=== PATIENT | male | born 1950 | race Caucasian/White ===

== ENCOUNTER → 2016-04-01 | Outpatient (CLI) | payer BC, OTHER ==
[~2016-04-01] MED LIST: ALL300 PO; CLON2TAB3 PO; FLM4 PO; HYDR12.55 PO; LEVO137T3 PO; LOSA50TA6 PO; MESA800T6 PO; SILD100T PO; TRAM-10 PO
== END | disposition home or self-care (01) ==
LOC: C.RDSM 08:17
PROVIDERS: ATTEND Physical Medicine & Rehabilitation Sports Medicine
DX: Z47.1 Aftercare following joint replacement surgery (principal); Z96.653 Presence of artificial knee joint, bilateral

== ENCOUNTER 2024-10-18 10:52 | Observation (INO) ==
[2024-10-18] MEDS: SODIUM CHLORIDE 0.9% 1,000 ML IV ONE (11:32)
[2024-10-18] MEDS: METOPROLOL TARTRATE 1 MG/ML VIAL IV STA ×2 (11:32→12:11)
--- NOTE | 2024-10-18 11:33 | Emergency Department Note ---
Impression & Plan New onset atrial fibrillation, Chest pain, Shortness of breath, Elevated troponin ED Provider Note NAME: TRISTIAN MALDONADO AGE: 74 SEX: M : 1950 ARRIVES VIA: Walk-In INFORMANT: Patient ED PROVIDER(S): rBian Osorio DO CHIEF COMPLAINT: Shortness of breath HPI: Patient is a patient is a 74-year-old male who presents to the ER for shortness of breath. He saw his PCP and was referred in as he was found to be tachycardic. He denies any headache or change in vision. No chest pain. No belly pain. No nausea, vomiting or diarrhea. No dysuria, urgency or frequency. No other exacerbating or remitting factors. He feels very weak and rundown. ADDITIONAL HISTORY OBTAINED: Per HPI Chronic Medical/Social Conditions Affecting Care: Per HPI PAST MEDICAL HISTORY:See Below PAST SURGICAL HISTORY:See Below FAMILY HISTORY:See Below SOCIAL HISTORY:See Below HOME MEDICATIONS:See Below ALLERGIES:See Below VITALS:See Below PHYSICAL EXAMINATION: GENERAL: Sitting up in bed, alert, well appearing, well nourished, no distress, non-toxic EYE EXAM: normal conjunctiva. OROPHARYNX: no exudate, no erythema, lips, buccal mucosa, and tongue normal and mucous membranes are moist NECK: supple, no nuchal rigidity, no adenopathy, non-tender LUNGS: Tachycardic. Normal chest wall mechanics HEART: no murmurs, S1 normal and S2 normal ABDOMEN: abdomen soft, non-tender, normo-active bowel sounds, no masses, no rebound or guarding. UPPER EXTREMITIES: upper extremities are grossly normal. LOWER EXTREMITIES: No pitting edema. NEURO EXAM: Normal sensorium, cranial nerves II-XII grossly intact, normal speech, no gross weakness of arms, no gross weakness of legs. MEDICAL DECISION MAKING: Patient is a 74-year-old male who presents ER for the above-stated complaint. IV was established blood work was obtained. He was seen in triage due to lack of rooms. He was found to be in was felt to be in atrial flutter. Labs showed no significant leukocytosis or anemia. INR unremarkable. BMP with LFTs bilirubin was unremarkable. Troponin was elevated in the 250s. Patient was given IV metoprolol x 2 doses and heart rate trended down to 100. He did appear to be consistent with A-fib. Patient was updated bedside. He was given aspirin. He was discussed with the hospitalist for further evaluation management treatment. Consults/Care Managements Discussions: Per MDM Triage Nursing notes reviewed. Limited review of prior medical records performed Vital Signs: reviewed and remarkable for HTN and tachy Differential diagnosis: Cardiac ischemia, aortic dissection, pulmonary embolism, pneumothorax, pneumonia, pericarditis, myocarditis, esophageal rupture, GERD, cholecystitis, pancreatitis, musculoskeletal, as well as other pathologies. ER treatment provided: See below Diagnostics interpreted by me include EKG and cardiac monitoring as listed below: -Cardiac Monitoring: An order was placed for continuous cardiac monitoring. The monitor shows a rate of 150 with sinus rhythm. -ECG: Atrial flutter rate of [address] depressions in high lateral leads QTc 507 EKG #2 A-fib rate of 106 Left axis Right bundle branch block QTc 515 -Laboratory studies:Interpreted by me as stated above in MDM and shown below. Imaging studies: Xrays: As interpreted by me: Portable AP upright 1 view of the chest shows no focal M-Trate CTs show: None Procedures: None Critical Care: I have personally spent 35 minutes of critical care time in the direct management of this patient. This includes bedside care, interpretation of diagnostic studies, and testing, discussion with consultants, patient, and family members, and other required patient management activities. This 35 minutes is in excess of all separately billable procedures. 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 Sleep apnea Ulcerative colitis History of thyroid cancer DJD (degenerative joint disease) of knee (Acute 04/27/14) Medical History History of kidney stones Surgical History H/O lithotripsy History of tonsillectomy and adenoidectomy History of thyroidectomy Family History Father Lung cancer Mother Lung cancer Social History Smoking Status: Never smoker Hx Alcohol Use: No Hx Substance Use: No Preferred Language: Liberian marital status: Current Living Situation: Spouse current occupational status: retired Feels Safe at Home: Yes Allergies Allergies Allergy/AdvReac Type Severity Reaction Status Date / Time pneumococcal vaccine Allergy Mild RASH Verified 10/18/24 12:43 nickel Allergy Unknown Unknown Unverified 10/18/24 12:43 Home Meds Home Medications Medication Instructions Recorded Confirmed allopurinol 300 mg tablet 300 mg PO QAM 03/02/19 10/18/24 ergocalciferol (vitamin D2) 1,250 50,000 units PO DIRECTED 03/02/19 10/18/24 mcg (50,000 unit) capsule hydrochlorothiazide 25 mg tablet 25 mg PO QAM 03/02/19 10/18/24 losartan 50 mg tablet 50 mg PO QPM 03/02/19 10/18/24 mesalamine 1.2 gram tablet,delayed 2.4 gm PO QAM 03/02/19 10/18/24 release multivitamin 1 tab PO QAM 03/02/19 10/18/24 tamsulosin 0.4 mg capsule 0.8 mg PO QAM 03/02/19 10/18/24 tramadol 50 mg tablet 50 - 100 mg PO BID PRN Pain 03/02/19 10/18/24 clonazepam 2 mg tablet 2 mg PO HS 04/13/19 10/18/24 levothyroxine 137 mcg capsule 274 mcg PO QAM 04/13/19 10/18/24 Lactobacillus acidophilus 250 20,000 mmu cells PO QAM 10/18/24 10/18/24 million cell capsule (Probiotic Acidophilus) acetaminophen 500 mg tablet 500 mg PO Q6H PRN Pain 10/18/24 10/18/24 cyclosporine 0.05 % eye drops in a 1 drp ophthalmic (eye) DAILY 10/18/24 10/18/24 dropperette dutasteride 0.5 mg capsule 0.5 mg PO QAM 10/18/24 10/18/24 krill oil 500 mg capsule 500 mg PO DAILY 10/18/24 10/18/24 magnesium oxide 400 mg PO DAILY 10/18/24 10/18/24 pregabalin 100 mg capsule 100 mg PO TID 10/18/24 10/18/24 testosterone 3 pump topical QAM 10/18/24 10/18/24 triamcinolone acetonide 0.1 % 1 applic topical QAM 10/18/24 10/18/24 lotion turmeric 400 mg capsule 400 mg PO DAILY 10/18/24 10/18/24 vitamin K2 40 mcg tablet 40 mcg PO DAILY 10/18/24 10/18/24 Results & Data (ED) Vital Signs Vital Signs - 24 hr 10/18/24 10:53 10/18/24 10:53 10/18/24 11:24 Temperature 36.6 C Temperature Source Temporal Artery Scan Pulse Rate 147 H Pulse Rate [Apical] 125 H Pulse Rhythm [Apical] Regular Pulse Strength [Apical] Normal Respiratory Rate 18 18 19 Respiratory Effort / Characteristics Non-Labored Spontaneous Respiratory Depth Normal Respiratory Pattern Regular Blood Pressure 139/80 Blood Pressure [Right Arm] 143/120 H Blood Pressure Mean 99 Blood Pressure Mean [Right Arm] 127 Pulse Oximetry 95 96 Oxygen Delivery Method Room Air Room Air Sepsis Recent Fever Within 48 Hours No Sepsis New/Unexplained Change in Mental Status N/A Sepsis Action Taken by Nursing No Action Required 10/18/24 11:32 10/18/24 12:04 10/18/24 12:11 Temperature Temperature Source Pulse Rate 145 H 118 H 116 H Pulse Rate [Apical] Pulse Rhythm [Apical] Pulse Strength [Apical] Respiratory Rate Respiratory Effort / Characteristics Respiratory Depth Respiratory Pattern Blood Pressure 131/103 H 155/108 H Blood Pressure [Right Arm] Blood Pressure Mean Blood Pressure Mean [Right Arm] Pulse Oximetry Oxygen Delivery Method Sepsis Recent Fever Within 48 Hours Sepsis New/Unexplained Change in Mental Status Sepsis Action Taken by Nursing Laboratory Data 10/18/24 11:12 10/18/24 11:12 Lab Results 10/18/24 Range/Units 11:12 WBC 5.99 (4.8-10.8) K/ul RBC 4.91 (4.70-6.10) M/uL Hgb 15.9 (14.0-18.0) g/dl Hct 44.8 (42.0-52.0) % MCV 91.2 (80.0-100.0) fL MCH 32.4 (25.0-34.0) pg MCHC 35.5 (32.0-36.0) g/dL RDW Std Deviation 44.7 (36.4-46.3) fL RDW Coeff of Kate 13.3 (11.5-14.5) % Plt Count 157 (130-400) K/uL MPV 10.0 (9.4-12.4) fL Immature Gran % (Auto) 0.3 % Neut % (Auto) 64.7 % Lymph % (Auto) 23.2 % Casey % (Auto) 9.3 % Eos % (Auto) 1.5 % Baso % (Auto) 1.0 % Neut # (Auto) 3.87 (1.40-6.50) K/uL Lymph # (Auto) 1.39 (1.20-3.40) K/uL Casey # (Auto) 0.56 (0.11-0.59) K/uL Eos # (Auto) 0.09 (0.00-0.50) K/uL Baso # (Auto) 0.06 (0.00-0.20) K/uL Immature Gran # (Auto) 0.02 (0.01-0.20) K/uL PT 10.6 (9.0-12.0) Seconds INR 1.0 (0.9-1.1) APTT 27 (21-31) Seconds PTT Ratio 1.0 D-Dimer 4230 H* (0-500) ug/L FEU Sodium 135 L (136-145) mmol/L Potassium 3.8 (3.5-5.1) mmol/L Chloride 102 (98-107) mmol/L Carbon Dioxide 26 (21-32) mmol/L Anion Gap 7 (3-11) BUN 26 H (6-23) mg/dl Creatinine 1.02 (0.6-1.4) mg/dl Est Cr Clr Drug Dosing 86.6 ml/min eGFR 77.12 BUN/Creatinine Ratio 25.5 H (10-20) Glucose 111 H (70-99(Fasting)) mg/dl Calcium 8.6 (8.6-10.3) mg/dl Total Bilirubin 0.5 (0.2-1.0) mg/dl AST 32 (13-39) U/L ALT 21 (7-52) U/L Alkaline Phosphatase 66 (34-104) U/L Troponin I High Sens 246.6 H* (0-20) pg/ml Total Protein 9.4 H (6.0-8.3) gm/dl Albumin 3.8 (3.4-5.0) gm/dl Globulin 5.6 H (2.5-4.0) gm/dl Albumin/Globulin Ratio 0.7 L (0.9-2) Administered Medications Heparin Sodium/Dextrose (Heparin 88808 Unit/500 Ml D5w) 25,000 units in 500 mls @ 35 mls/hr IV .[id number] [facility]; Protocol Stop: 11/17/24 13:44 Last Admin: 10/18/24 14:39 Dose: 1,750 units/hr, 35 mls/hr Documented By: Co-signed By: HERMAN Diltiazem HCl 125 mg/ Dextrose 125 mls @ 5 mls/hr IV .Q24H [facility]; Protocol Stop: 11/17/24 14:14 Last Admin: 10/18/24 14:40 Dose: 5 mg/hr, 5 mls/hr Documented By: Co-signed By: HERMAN Discontinued Medications Aspirin (Aspirin Chew 324 Mg) 324 mg PO NOW STA Stop: 10/18/24 12:05 Last Admin: 10/18/24 12:10 Dose: 324 mg Documented By: HERMAN Diltiazem HCl (Diltiazem Hcl 5 Mg/Ml 5 Ml Vial) 5 mg IV NOW STA Stop: 10/18/24 14:16 Last Admin: 10/18/24 14:40 Dose: 5 mg Documented By: Co-signed By: HERMAN Heparin Sodium/Dextrose (Heparin Iv Adult Wt-Based Standard W/ Initial Bolus Protocol) 1 each IV NOW STA; Protocol Stop: 10/18/24 13:23 Last Admin: 10/18/24 13:31 Dose: Not Given Documented By: OTONIEL Sodium Chloride (Nss) 1,000 mls @ 999 mls/hr IV .Q1H1M ONE Stop: 10/18/24 12:27 Last Infusion: 10/18/24 12:34 Dose: Infused Documented By: Admin: 10/18/24 11:32 Dose: 999 mls/hr Documented By: OTONIEL Ioversol (Optiray 320 125ml) 120 ml IV ONCE ONE Stop: 10/18/24 14:48 Last Admin: 10/18/24 14:47 Dose: 120 ml Documented By: ARTI Metoprolol Tartrate (Metoprolol Tartrate 1 Mg/Ml Vial) 5 mg IV NOW STA Stop: 10/18/24 11:28 Last Admin: 10/18/24 11:32 Dose: 5 mg Documented By: OTONIEL Metoprolol Tartrate (Metoprolol Tartrate 1 Mg/Ml Vial) 5 mg IV NOW STA Stop: 10/18/24 12:05 Last Admin: 10/18/24 12:11 Dose: 5 mg Documented By: NDW Imaging Data Radiologist's Impression: Chest X-Ray 10/18/24 11:02 XR chest 1V not portable CLINICAL HISTORY: Chest pain, nonspecific COMPARISON STUDY: None FINDINGS: Heart size and pulmonary vasculature are normal. There is a 1 cm irregular density overlying the central chest. No consolidation or pleural effusion. No pneumothorax. IMPRESSION: 1. Possible foreign body overlying the central chest. 2. No other acute findings seen. ACT 112: Negative or not required by law. Electronically signed by: Eligio Espinal M.D. 10/18/2024 11:58 AM Discharge Plan Visit Data Chief Complaint: Referred by Doctor Stated Complaint: RAPID HEART RATE - REFFERED BY ED Provider: Brian Osorio Discharge Problem: New onset atrial fibrillation, Chest pain, Shortness of breath, Elevated troponin Patient Disposition: Admitted As Inpatient Condition: Fair Discharge Instructions Interventions: ED Discharge Assessment Last Done: 10/18/24 14:25 Discharge Problem: Chest pain Qualifiers: Chest pain type: unspecified Qualified Code(s): R07.9 - Chest pain, unspecified
[2024-10-18 11:34] LABS: Hematocrit (blood only) 44.8 % (42.0-52.0); Hemoglobin 15.9 g/dl (14.0-18.0); Immature Granulocytes # (auto) 0.02 K/uL (0.01-0.20); Immature Granulocytes % (auto) 0.3 %; Mean Corpuscular Hemoglobin 32.4 pg (25.0-34.0); Mean Corpuscular Volume 91.2 fL (80.0-100.0); Platelet Count 157 K/uL (130-400); RDW Standard Deviation 44.7 fL (36.4-46.3); Red Blood Count 4.91 M/uL (4.70-6.10); White Blood Count 5.99 K/ul (4.8-10.8)
[2024-10-18 11:49] LABS: Alanine Aminotransferase 21.0 U/L (7-52); Albumin Globulin Ratio 0.7 (0.9-2); Alkaline Phosphatase 66.0 U/L (34-104); Anion Gap 7.0 (3-11); Bilirubin,Total 0.5 mg/dl (0.2-1.0); Blood Urea Nitrogen 26.0 mg/dl (6-23); Calcium 8.6 mg/dl (8.6-10.3); Carbon Dioxide 26.0 mmol/L (21-32); Chloride 102.0 mmol/L (98-107); Creatinine Clr Calc Pharmacy 86.6 ml/min; Globulin 5.6 gm/dl (2.5-4.0); Glucose 111.0 mg/dl (70-99(Fasting)); Potassium 3.8 mmol/L (3.5-5.1); Sodium 135.0 mmol/L (136-145); Total Protein 9.4 gm/dl (6.0-8.3)
[2024-10-18 11:56] LABS: INR 1.0 (0.9-1.1); Partial Thromboplastin Time 27 Seconds (21-31); Prothrombin Time 10.6 Seconds (9.0-12.0)
--- NOTE | 2024-10-18 12:00 | XRay Report ---
XR chest 1V not portable CLINICAL HISTORY: Chest pain, nonspecific COMPARISON STUDY: None FINDINGS: Heart size and pulmonary vasculature are normal. There is a 1 cm irregular density overlyin g the central chest. No consolidation or pleural effusion. No pneumothorax. IMPRESSION: 1. Possible foreign body overlying the central chest. 2. No other acute findings seen. ACT 112: Negative or not required by law. Electronically signed by: Eligio Espinal M.D. 10/18/2024 11:58 AM
[2024-10-18] MEDS: ASPIRIN CHEW 324 MG PO STA (12:10)
--- NOTE | 2024-10-18 12:16 | History & Physical Report ---
Date of Service October 18, 2024 Assessment & Plan (1) New onset atrial fibrillation: (2) History of thyroid cancer: (3) Ulcerative colitis: (4) HTN (hypertension): Plan: Mr. Fu is a 74-year-old male that presented to the ED as recommended by his PCP for shortness of breath and tachycardia that was identified in an outpatient appointment. His heart rate was in the 150s in the office and he was instructed to proceed to the ED. He reportedly has been feeling weak over the last few weeks. He has been doing more house chores like laundry (going up and down steps with a laundry basket, vaccuming, etc). He denies anything else unusual recently including upper respiratory illness or recent travel. He did have a mechanical fall 6 weeks ago and reports that he is seeing physical therapy for BPPV. Additional PMH includes: Ulcerative Colitis, HTN, LBBB, New onset atrial fibrillation: SOB: SOB started on Friday, intermittent with activity and at rest At PCP; HR was in 150's sent to ED In ED, metoprolol 5 mg IV x 2; response HR low 100's-115. Started Metoprolol 12.5 mg PO TID Was given ASA 324 mg in ED No leukocytosis, Troponin 246.6; repeat now; likely 2/2 ischemic demand, rather than ACS. [id number] score 2 Check A1C and lipid panel in AM Started on Heparin gtt without bolus given UC history. ECHO ordered; last ECHo 03/2024: EF 60-65%, G1DDX, mild MR. D-Dimer elevated at 4200; will add on chest CTA and Venous Doppler LE. 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 Most recently his last injection was on Friday. No issues with injections thus far. Takes Lyrica; continue History of Thyroid CA: s/p total thyroidectomy 2006 s/p radioactive iodine treatment Ulcerative Colitis: In remission Takes mesalamine; continue BPH: Takes tamsulosin;continue Disposition: PCP: Dr. Kennedy Code Status: Full VTE Prophylaxis: Heparin gtt I spent a total of 78 minutes coordinating, documenting, and providing care for this patient excluding time spent inthe performance of separately billed services or time spent by another provider/QHP. History of Present Illness Chief Complaint: SOB/tachycardia Primary Care Provider: Xiang Kennedy MD Mr. Fu is a 74-year-old male that presented to the ED as recommended by his PCP for shortness of breath and tachycardia that was identified in an outpatient appointment. His heart rate was in the 150s in the office and he was instructed to proceed to the ED. He reportedly has been feeling weak over the last few weeks. He has been doing more house chores like laundry (going up and down steps with a laundry basket, vaccuming, etc). He denies anything else unusual recently including upper respiratory illness or recent travel. He did have a mechanical fall 6 weeks ago and reports that he is seeing physical therapy for BPPV. Additional PMH includes: Ulcerative Colitis, HTN, LBBB, demeylenating polyneuropathy, and BPH. In the ED he was found to be in A-fib which was a new onset for him. He follows with Dr. Stone with Neurology For demyelinating polyneuropathy which was diagnosed at the beginning of the year. He has been receiving IVIG for treatme nt for this after pathology indicated in his left foot at the myelin sheath with demyelinating. He has received 4 weekly cycles of monthly IVIG injections that take place daily over 1 week time. Most recently his last injection was on Friday. He has not had any issues with his injections this far. He received metoprolol 5 mg IV x 2, Start aspirin, and was started on IV fluids x 1 L. No leukocytosis, troponin level 246.6 likely secondary to ischemic demand due to new onset A-fib. otherwise his electrolytes are unremarkable. [id number] score 2. in the ED he received metoprolol 5 mg IV x 2 and was loaded with baby aspirin 324 mg. Patient will be admitted for further evaluation and management of his new onset A-fib. Echocardiogram ordered, repeat Troponin, will start IV Heparin infusion without bolus given UC history, and start Metoprolol 12.5 mg po TID. Will keep NPO until Cards eval and admit to PCU.D-Dimer elevated at 4200; will add on chest CTA and Venous Doppler LE. Please see H&P for further details. Allergies Allergy/AdvReac Type Severity Reaction Status Date / Time pneumococcal vaccine Allergy Mild RASH Verified 10/18/24 12:43 nickel Allergy Unknown Unknown Unverified 10/18/24 12:43 Home Medications Medication Instructions Recorded Confirmed Type allopurinol 300 mg tablet 300 mg PO QAM 03/02/19 10/18/24 History ergocalciferol (vitamin D2) 1,250 50,000 units PO DIRECTED 03/02/19 10/18/24 History mcg (50,000 unit) capsule hydrochlorothiazide 25 mg tablet 25 mg PO QAM 03/02/19 10/18/24 History losartan 50 mg tablet 50 mg PO QPM 03/02/19 10/18/24 History mesalamine 1.2 gram tablet,delayed 2.4 gm PO QAM 03/02/19 10/18/24 History release multivitamin 1 tab PO QAM 03/02/19 10/18/24 History tamsulosin 0.4 mg capsule 0.8 mg PO QAM 03/02/19 10/18/24 History tramadol 50 mg tablet 50 - 100 mg PO BID PRN Pain 03/02/19 10/18/24 History clonazepam 2 mg tablet 2 mg PO HS 04/13/19 10/18/24 History levothyroxine 137 mcg capsule 274 mcg PO QAM 04/13/19 10/18/24 History Lactobacillus acidophilus 250 20,000 mmu cells PO QAM 10/18/24 10/18/24 History million cell capsule (Probiotic Acidophilus) acetaminophen 500 mg tablet 500 mg PO Q6H PRN Pain 10/18/24 10/18/24 History cyclosporine 0.05 % eye drops in a 1 drp ophthalmic (eye) DAILY 10/18/24 10/18/24 History dropperette dutasteride 0.5 mg capsule 0.5 mg PO QAM 10/18/24 10/18/24 History krill oil 500 mg capsule 500 mg PO DAILY 10/18/24 10/18/24 History magnesium oxide 400 mg PO DAILY 10/18/24 10/18/24 History pregabalin 100 mg capsule 100 mg PO TID 10/18/24 10/18/24 History testosterone 3 pump topical QAM 10/18/24 10/18/24 History triamcinolone acetonide 0.1 % 1 applic topical QAM 10/18/24 10/18/24 History lotion turmeric 400 mg capsule 400 mg PO DAILY 10/18/24 10/18/24 History vitamin K2 40 mcg tablet 40 mcg PO DAILY 10/18/24 10/18/24 History 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 Sleep apnea Ulcerative colitis History of thyroid cancer DJD (degenerative joint disease) of knee (Acute 04/27/14) Medical History History of kidney stones Surgical History H/O lithotripsy History of tonsillectomy and adenoidectomy History of thyroidectomy Family History Father Lung cancer Mother Lung cancer Social History Smoking Status: Never smoker Hx Alcohol Use: No Hx Substance Use: No Preferred Language: Mongolian marital status: Current Living Situation: Spouse current occupational status: retired Feels Safe at Home: Yes Review of Systems Review of Systems: Neuro: (-) Falls, trauma, slurred speech HEENT: (-) NELSON, dizziness, dysphagia, visual or auditory changes CV: (-) CP, palpitations, swelling Resp: (-) SOB GI: (-) appetite changes, N/V/D, bowel changes : (-) urinary changes Skin: (-) rashes Psych: (-) anxiety, depression Physical Exam Physical Exam: Neuro: AAOx4, PERRLA, no aphagia, memory changes, CNII-XII grossly intact HEENT: head normocephalic, moist mucus membranes CV: Irregularly irregular, (-) M/G/R, (-) edema, cap refill < 3 seconds Resp: Lungs CTA in all ely. On RA GI: Large abdomen S/NT/ND, Ax4 bowel sounds, (-) CVA tenderness Musculoskeletal: 5/5 B/L UE strength, 5/5 B/L LE strength. uses a cane for ambulation. Skin: (-) rashes , (-) erythema. Psych: euthymic mood Results & Data Results & Data Vital Signs (Past 12 Hours) Vital Signs Temp Pulse Pulse Resp BP BP Pulse Ox 10/18/24 12:11 116 H 155/108 H 10/18/24 12:04 118 H 10/18/24 11:32 145 H 131/103 H 10/18/24 11:24 125 H 19 143/120 H 96 10/18/24 10:53 18 10/18/24 10:53 36.6 C 147 H 18 139/80 95 O2 Del Method 10/18/24 12:11 10/18/24 12:04 10/18/24 11:32 10/18/24 11:24 Room Air 10/18/24 10:53 10/18/24 10:53 Room Air Laboratory Results Short CBC 10/18/24 Range/Units 11:12 WBC 5.99 (4.8-10.8) K/ul Hgb 15.9 (14.0-18.0) g/dl Hct 44.8 (42.0-52.0) % Plt Count 157 (130-400) K/uL BMP 10/18/24 11:12 Sodium 135 L Potassium 3.8 Chloride 102 Carbon Dioxide 26 BUN 26 H Creatinine 1.02 Glucose 111 H Calcium 8.6 Liver Function 10/18/24 Range/Units 11:12 Total Bilirubin 0.5 (0.2-1.0) mg/dl AST 32 (13-39) U/L ALT 21 (7-52) U/L Alkaline Phosphatase 66 (34-104) U/L Albumin 3.8 (3.4-5.0) gm/dl Diagnostic Findings Chest X-Ray 10/18/24 11:02 XR chest 1V not portable CLINICAL HISTORY: Chest pain, nonspecific COMPARISON STUDY: None FINDINGS: Heart size and pulmonary vasculature are normal. There is a 1 cm irregular density overlying the central chest. No consolidation or pleural effusion. No pneumothorax. IMPRESSION: 1. Possible foreign body overlying the central chest. 2. No other acute findings seen. ACT 112: Negative or not required by law. Electronically signed by: Eligio Espinal M.D. 10/18/2024 11:58 AM Code Status & VTE Plan Code Status Full Code in the event of cardiac or respiratory arrest VTE Prophylaxis Plan VTE Prophylaxis will be ordered: Yes Supervising Physician Co-Signing Physician Notes Care coordinated with ITZ Galicia. Agree with above note. Patient seen and examined. Please refer to her notes for full details. Vital signs reviewed. Physical exam: General exam: Alert and oriented. Not in acute distress. CVS: S1 and S2 heard, irregular rate and rhythm, no murmurs. RS: Clear to auscultation, no wheezing or crackles. ABD: Soft, bowel sounds present, nontender, no distention. CORPORATION PILOT: Nonfocal. EXT: No edema, no erythema. Labs: Reviewed. Assessment and plan: 74 Y M went to PCP office today as he feeling SOB and not feeling well and found to be in rapid a fib and was sent to ER. Denies any chest pain. HAs neuropathy in lower extremities and has ongoing dizziness. No fevers. No cough. Hemodynamics ok. New onset afib Received iv Lopressor 5mg x 2 in Er Will continue with po Lopressor per cardio recommendations. To Monitor closely heart rates as having underlying bifascicular heart block iv heparin close monitor in tele Elevated troponin mostly demand ischemia currently asymptomatic initial trop 246 and repeat 305 echo ok will follow serial ce cardiology on board Elevated D dimer cta chest unremarkable HTN on hctz starting Lopressor holding losartan' will monitor. Demyelinating polyneuropathy on ivig injections every four weeks for 5day since last 4 months following with Neurology Other diagnosis and plan of care as per ITZ Galicia . Ruperto avalos MD.
--- NOTE | 2024-10-18 12:19 | Electrocardiogram Report ---
Test Reason : Blood Pressure : */* mmHG Vent. Rate : 149 BPM Atrial Rate : 149 BPM P-R Int : 104 ms QRS Dur : 142 ms QT Int : 322 ms P-R-T Axes : * -84 74 degrees QTcB Int : 507 ms Sinus tachycardia with short IA Right bundle branch block Left anterior fascicular block Bifascicular block Left ventricular hypertrophy with repolarization abnormality ( R in aVL ) Cannot rule out Septal infarct , age undetermined Abnormal ECG No previous ECGs available Confirmed by Toney Ayers ([id number]) on 10/18/2024 12:18:54 PM Referred By: Confirmed By: Toney Ayers
--- NOTE | 2024-10-18 12:21 | Electrocardiogram Report ---
Test Reason : Blood Pressure : */* mmHG Vent. Rate : 106 BPM Atrial Rate : 106 BPM P-R Int : 184 ms QRS Dur : 154 ms QT Int : 388 ms P-R-T Axes : * -75 43 degrees QTcB Int : 515 ms Sinus tachycardia with Premature atrial complexes in a pattern of bigeminy Right bundle branch block Left anterior fascicular block Bifascicular block Minimal voltage criteria for LVH, may be normal variant ( R in aVL ) Abnormal ECG When compared with ECG of 18-Oct-2024 11:06, (unconfirmed) Premature atrial complexes are now Present OH interval has increased T wave inversion less evident in Anterior leads Confirmed by Toney Ayers ([id number]) on 10/18/2024 12:21:17 PM Referred By: Confirmed By: Toney Ayers
[2024-10-18] MEDS ORDERED: ERGOCALCIFEROL 1250 MCG (50,000 UNITS) CAP PO SCH (13:30)
[2024-10-18] MEDS: Heparin IV Adult Wt-Based Standard w/ INITIAL Bolus Protocol IV STA (13:31)
[2024-10-18] MEDS ORDERED: HEPARIN SOD (PORCINE) 1000 UNIT/ML IV ONE (13:37)
[2024-10-18] MEDS ORDERED: STAT IV Infusion **Titration per Protocol STA (14:15)
--- NOTE | 2024-10-18 14:16 | Cardiology Consultation ---
Date of Consultation October 18, 2024 Assessment & Plan (1) New onset atrial fibrillation: * Start heparin for stroke prophylaxis * Cautiously start metoprolol tartrate 25 mg x 1 now and then 25 mg twice daily, with hold for heart rate less than 60 beats per, systolic blood pressure less than 90 mmHg, given underlying bifascicular block and risk of inducing bradycardia (2) Bifascicular bundle branch block: * As noted, start AV adia blockers with caution. Doses will likely be limited by the underlying bifascicular block with baseline heart rate in the 60s and when in sinus rhythm historically. (3) Aortic stenosis: * Mild aortic stenosis, echo March,. Repeat echocardiogram to be completed and will be reviewed. I spent a total of 60 minutes on the date of service in preparation, delivery, and documentation of the care provided to this patient, excluding any time spent in the performance of separately billed services. Katlin Florez DO History of Present Illness History of Present Illness Ismael Fu is a 74 year old male seen in cardiology consultation per the request of ITZ Nguyễn for the evaluation of shortness of breath, newly diagnosed atrial fibrillation with rapid ventricular response. Patient notes first onset of symptoms of shortness of breath 2 days ago on 10/16/2024, improved for a short interval of time, and then became worse yesterday. He ranged a visit with primary care and EKG confirmed the presence of atrial fibrillation with rapid ventricular response, heart rate up into the 140s. He was therefore directed to the emergency department. He received 2 doses of IV metoprolol and his heart rates improved to some degree. He remained in atrial fibrillation in the 120s during my assessment. Patient had most recently been seen by Dr. Banks of our practice in April, at which time stable cardiac signs and symptoms were noted. History: 1. Chronic right bundle branch block, left anterior fascicular block (bifascicular block) 2. Hypertension 3. Symptomatic PVCs 4. Mild calcific aortic stenosis 4. 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 GARDEN[place] on BIPAP 6. 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 and is receiving IVIG treatment Allergies Allergy/AdvReac Type Severity Reaction Status Date / Time pneumococcal vaccine Allergy Mild RASH Verified 10/18/24 12:43 nickel Allergy Unknown Unknown Unverified 10/18/24 12:43 Home Medications Medication Instructions Recorded Confirmed Type allopurinol 300 mg tablet 300 mg PO QAM 03/02/19 10/18/24 History ergocalciferol (vitamin D2) 1,250 50,000 units PO DIRECTED 03/02/19 10/18/24 History mcg (50,000 unit) capsule hydrochlorothiazide 25 mg tablet 25 mg PO QAM 03/02/19 10/18/24 History losartan 50 mg tablet 50 mg PO QPM 03/02/19 10/18/24 History mesalamine 1.2 gram tablet,delayed 2.4 gm PO QAM 03/02/19 10/18/24 History release multivitamin 1 tab PO QAM 03/02/19 10/18/24 History tamsulosin 0.4 mg capsule 0.8 mg PO QAM 03/02/19 10/18/24 History tramadol 50 mg tablet 50 - 100 mg PO BID PRN Pain 03/02/19 10/18/24 History clonazepam 2 mg tablet 2 mg PO HS 04/13/19 10/18/24 History levothyroxine 137 mcg capsule 274 mcg PO QAM 04/13/19 10/18/24 History Lactobacillus acidophilus 250 20,000 mmu cells PO QAM 10/18/24 10/18/24 History million cell capsule (Probiotic Acidophilus) acetaminophen 500 mg tablet 500 mg PO Q6H PRN Pain 10/18/24 10/18/24 History cyclosporine 0.05 % eye drops in a 1 drp ophthalmic (eye) DAILY 10/18/24 10/18/24 History dropperette dutasteride 0.5 mg capsule 0.5 mg PO QAM 10/18/24 10/18/24 History krill oil 500 mg capsule 500 mg PO DAILY 10/18/24 10/18/24 History magnesium oxide 400 mg PO DAILY 10/18/24 10/18/24 History pregabalin 100 mg capsule 100 mg PO TID 10/18/24 10/18/24 History testosterone 3 pump topical QAM 10/18/24 10/18/24 History triamcinolone acetonide 0.1 % 1 applic topical QAM 10/18/24 10/18/24 History lotion turmeric 400 mg capsule 400 mg PO DAILY 10/18/24 10/18/24 History vitamin K2 40 mcg tablet 40 mcg PO DAILY 10/18/24 10/18/24 History Patient History Medical History History of kidney stones Surgical History H/O lithotripsy History of tonsillectomy and adenoidectomy History of thyroidectomy Family History Father Lung cancer Mother Lung cancer Social History Smoking Status: Never smoker Hx Alcohol Use: No Hx Substance Use: No Preferred Language: Sami marital status: Current Living Situation: Spouse current occupational status: retired Feels Safe at Home: Yes Review of Systems Review of Systems: All systems reviewed & are unremarkable except as noted in HPI & below Physical Exam Constitutional: WD/WN, vitals as above Cardiovascular: Rate/Rhythm: + irregularly irregular Heart Sounds: + murmur (1/6 SM ) Vessels: no JVD Extremities: + edema (trace to 1+ BL LE edema ) Gastrointestinal (Abdomen): normal bowel sounds, soft, nontender, no hepatosplenomegaly Musculoskeletal: Well-healed bilateral incisions consistent with history of bilateral knee replaced Neurologic: PERRL, EOMI, accommodation nl, no face palsy, no dysarthria Results & Data Vital Signs (Past 12 Hours) Vital Signs Temp Pulse Pulse Resp BP BP Pulse Ox 10/18/24 12:35 110 H 10/18/24 12:15 108 H 10/18/24 12:11 116 H 155/108 H 10/18/24 12:04 118 H 10/18/24 11:32 145 H 131/103 H 10/18/24 11:24 125 H 19 143/120 H 96 10/18/24 10:53 18 10/18/24 10:53 36.6 C 147 H 18 139/80 95 O2 Del Method 10/18/24 12:35 10/18/24 12:15 10/18/24 12:11 10/18/24 12:04 10/18/24 11:32 10/18/24 11:24 Room Air 10/18/24 10:53 10/18/24 10:53 Room Air Laboratory Results Cardiac Enzymes 10/18/24 10/18/24 Range/Units 11:12 13:08 AST 32 (13-39) U/L Troponin I High Sens 246.6 H* 305.0 H* D (0-20) pg/ml Coagulation 10/18/24 Range/Units 11:12 PT 10.6 (9.0-12.0) Seconds APTT 27 (21-31) Seconds CBC 10/18/24 Range/Units 11:12 WBC 5.99 (4.8-10.8) K/ul RBC 4.91 (4.70-6.10) M/uL Hgb 15.9 (14.0-18.0) g/dl Hct 44.8 (42.0-52.0) % Plt Count 157 (130-400) K/uL Neut # (Auto) 3.87 (1.40-6.50) K/uL Lymph # (Auto) 1.39 (1.20-3.40) K/uL Gonzales # (Auto) 0.56 (0.11-0.59) K/uL Eos # (Auto) 0.09 (0.00-0.50) K/uL Baso # (Auto) 0.06 (0.00-0.20) K/uL Comprehensive Metabolic Panel 10/18/24 Range/Units 11:12 Sodium 135 L (136-145) mmol/L Potassium 3.8 (3.5-5.1) mmol/L Chloride 102 (98-107) mmol/L Carbon Dioxide 26 (21-32) mmol/L BUN 26 H (6-23) mg/dl Creatinine 1.02 (0.6-1.4) mg/dl Glucose 111 H (70-99(Fasting)) mg/dl Calcium 8.6 (8.6-10.3) mg/dl AST 32 (13-39) U/L ALT 21 (7-52) U/L Alkaline Phosphatase 66 (34-104) U/L Total Protein 9.4 H (6.0-8.3) gm/dl Albumin 3.8 (3.4-5.0) gm/dl Diagnostic Findings Summary transthoracic echocardiogram performed 03/23/2024: Interpretation Summary The qualitative LV ejection fraction is 60-64% (normal). The LV wall thickness is mildly increased (concentric). The left ventricular diastolic function is mildly abnormal (grade I). The aortic valve has three leaflets. The aortic valve is mildly calcified. Mild aortic valve stenosis is present. Mild mitral regurgitation is present. The aortic root is mildly enlarged, 4.2 cm. Compared to last available study changes are noted as follows: Mild aortic valve stenosis is present. EKG performed 10/18/2024 at 11:49 AM: Atrial fibrillation with underlying right bundle branch block at 106 bpm. PG Care Time/CCT Total # of Minutes Spent Total Time Spent with Patient: Total time spent is greater than 50% in coordination of care (as documented) at patient's floor/unit and/or counseling patient: Coding Level of Care Code 70440 IN/OBS CONSULT LVL 4,60M Diagnoses New onset atrial fibrillation I48.91 Bifascicular bundle branch block I45.2 Aortic stenosis I35.0
[2024-10-18] MEDS ORDERED: ALUMINUM/MAGNESIUM SUSP 30 ML UDC PO PRN (14:24)
[2024-10-18] MEDS ORDERED: ARTIFICIAL TEARS OP PRN (14:24)
[2024-10-18] MEDS ORDERED: ACETAMINOPHEN 325 MG TAB PO PRN (14:24)
[2024-10-18] MEDS ORDERED: MAGNESIUM HYDROXIDE SUSP 30 ML UDC PO PRN (14:24)
[2024-10-18] MEDS ORDERED: POLYETHYLENE (MIRALAX) 17 GM PACK PO PRN (14:24)
[2024-10-18] MEDS ORDERED: ONDANSETRON INJ 2 MG/ML 2 ML VIAL IV PRN (14:24)
[2024-10-18] MEDS: HEPARIN 25000 UNIT/500 ML D5W 25,000 UNITS/500 ML BAG IV SCH (14:39)
[2024-10-18] MEDS: OPTIRAY 320 125ml IV ONE (14:47)
--- NOTE | 2024-10-18 15:03 | CT Scan Report ---
CT angio chest PE protocol CT DOSE: 1066.55 mGy.cm HISTORY: 74 years-old Male with PE. Acute shortness breath or chest pain TECHNIQUE: Multiple CTA images of the chest were obtained after the intravenous administration of 120 ml Optiray. Coronal and sagittal MIPS were obtained from the axial data set and were submitted for review. All measurements were obtained according to NASCET criteria. A dose lowering technique was u tilized adhering to the principles of ALARA. COMPARISON: Chest radiograph and duplex venous Doppler studies of same day FINDINGS: CTA: Cardiomegaly with moderate to extensive coronary artery calcifications. No thoracic aortic aneurysm o r dissection. No pulmonary emboli identified. CT CHEST: Surgical clips are noted within the region of the thyroid. Calcified subcarinal lymph nodes. No pneum othorax, pleural effusion, airspace consolidation or pulmonary edema. Calcified granuloma the basal r ight lower lobe. Mild dependent subsegmental bibasilar atelectasis. Low suspicion for a millimeter gr oundglass nodule of the left upper lobe on image 159 series 4. Central airways are patent. Calcified granulomata of the spleen. Hepatomegaly with hepatic steatosis unremarkable soft tissues. N o acute fracture. Degenerative changes of the shoulders and spine. Radiodense material is again noted adjacent to the T6 vertebral body. IMPRESSION: 1. Cardiomegaly without pulmonary emboli identified. 2. No pleural effusion or airspace consolidation to suggest pneumonia. 3. Prior granulomatous disease. ACT 112: Negative or not required by law. The above report was generated using voice recognition software. It may contain grammatical, syntax o r spelling errors. Electronically signed by: Oumar Osman M.D. 10/18/2024 3:00 PM
[2024-10-18] MEDS: diphenhydrAMINE Capsule 25 MG CAP PO ONE (15:26)
[2024-10-18] MEDS: PREGABALIN 100 MG CAP PO SCH (15:26)
[2024-10-18] MEDS: METOPROLOL TARTRATE 25 MG TAB PO ONE (15:27)
[2024-10-18] MEDS: METOPROLOL SUCC 25MG EXT REL TAB PO SCH (15:29)
--- NOTE | 2024-10-18 18:57 | Communication Note ---
Date of Service: October 18, 2024 Pt reassessed in PCU. Still in AF, but rates down to the 70s. Continue heparin infusion, metoprolol, diltazem. NPO after midnight pending reassessment by Dr Banks tomorrow. Carmelita Florez DO
[2024-10-18] MEDS: METOPROLOL TARTRATE 25 MG TAB PO SCH (20:29)
[2024-10-18 22:39] LABS: ANTI-Xa, UFH(UnfractionatedHep 0.53 IU/ml (0.3-0.7)
--- NOTE | 2024-10-18 22:39 | Ultrasound Report ---
Exam(s): US VENOUS BILATERAL LOWER EXTREMITIES EXAM: US Duplex Bilateral Lower Extremities Veins CLINICAL HISTORY: Reason for exam: R/O DVT. TECHNIQUE: Real-time duplex ultrasound scan of the bilateral lower extremity veins integrating B-mode two-dimensional vascular structure, Doppler spectral analysis, color flow Doppler imaging and compression. COMPARISON: No relevant prior studies available. FINDINGS: Right deep veins: No DVT in the right common femoral, femoral, proximal deep femoral or popliteal veins. The veins demonstrate normal color flow, are normally compressible, with normal phasic flow and/or augmentation response. Right superficial veins: No thrombus in the visualized right great saphenous vein. Left deep veins: No DVT in the left common femoral, femoral, proximal deep femoral or popliteal veins. The veins demonstrate normal color flow, are normally compressible, with normal phasic flow and/or augmentation response. Left superficial veins: No thrombus in the visualized left great saphenous vein. Soft tissues: No acute findings. IMPRESSION: No evidence of acute DVT. Electronically signed by: Isi Mccoy M.D. 10/18/24 22:38 PM
--- NOTE | 2024-10-18 22:54 | Communication Note ---
Date of Service: October 18, 2024 Patient converted to NSR. Heart rate 50 to 60s as per RN. Vernon Asencio. Dr. Florez of cardiology given update via [facility] text. He recommends maintaining n.p.o. order after midnight in case patient reverts to AF.
[2024-10-19] MEDS: LEVOTHYROXINE SODIUM 137 MCG TABLET PO SCH (05:29)
[2024-10-19 07:25] LABS: Hematocrit (blood only) 42.4 % (42.0-52.0); Hemoglobin 14.8 g/dl (14.0-18.0); Mean Corpuscular Hemoglobin 32.0 pg (25.0-34.0); Mean Corpuscular Volume 91.6 fL (80.0-100.0); Platelet Count 141 K/uL (130-400); RDW Standard Deviation 45.1 fL (36.4-46.3); Red Blood Count 4.63 M/uL (4.70-6.10); White Blood Count 6.42 K/ul (4.8-10.8)
[2024-10-19 07:56] LABS: Anion Gap 7.0 (3-11); Blood Urea Nitrogen 19.0 mg/dl (6-23); Calcium 8.1 mg/dl (8.6-10.3); Carbon Dioxide 28.0 mmol/L (21-32); Chloride 101.0 mmol/L (98-107); Cholesterol 148.0 mg/dl (0-200); Creatinine Clr Calc Pharmacy 100.1 ml/min; Glucose 89.0 mg/dl (70-99(Fasting)); HDL Cholesterol 30.0 mg/dl; Magnesium 1.9 mg/dl (1.7-2.4); Potassium 3.8 mmol/L (3.5-5.1); Sodium 136.0 mmol/L (136-145); Triglycerides 92.0 mg/dl (0-150)
[2024-10-19] MEDS: TAMSULOSIN HCL 0.4 MG CAP PO SCH (07:56)
[2024-10-19] MEDS: FINASTERIDE 5 MG TAB PO SCH (07:56)
[2024-10-19] MEDS: BETAMETHASONE VAL 0.1% CR 15 GM TOP SCH (07:58)
[2024-10-19 08:07] LABS: Hemoglobin A1C 5.7 % (4.5-5.6)
[2024-10-19 08:33] LABS: ANTI-Xa, UFH(UnfractionatedHep 0.78 IU/ml (0.3-0.7)
[2024-10-19] MEDS: APIXABAN 5 MG TABLET PO SCH (09:42)
[2024-10-19 11:43] VITALS: BP 125/69; PULSE 68; RESP 18; TEMP 97.7; O2SAT 97
--- NOTE | 2024-10-19 12:18 | Cardiology Progress Note ---
Date of Service October 19, 2024 Assessment & Plan (1) New onset atrial fibrillation: (2) Bifascicular bundle branch block: (3) Aortic stenosis: Plan Assessment: 74 year old male admitted for shortness of breath with new A-fib with RVR with symptoms that started 2 days prior to admission. Cardiology contacted for further assessment and recommendations. Plan: 1. New onset A-fib with RVR: -Patient with history of CDIP (chronic inflammatory demyelinating polyneuropathy) with competition of first round of infusions 2 days prior to symptom onset. Possible trigger for his A-fib event. Next infusion set to take place around . -patient converted overnight to NSR rates 60-70's. continue metoprolol tartrate 25mg PO BID, and Eliquis 5mg PO BID -Cardizem gtt has been discontinued. -Will start furosemide 20mg daily with plan for OP labs in one week to assess response. 2. Bifascicular bundle branch block -Currently tolerating addition of AV adia blocking agents. No acute events on telemetry. 3. aortic stenosis -Mild Mar 2024 per echocardiogram. Repeat echo yesterday demonstrates preserved LVEF 55-60% mild aortic valve calcification with at least mild , technically limited in the setting of tachycardia. [id number] 198.4cm/sec. -patient appears euvolemic on exam, start Furosemide as noted above with close lab follow up. Plan for OP cardiology follow up in 2-4 weeks with labs prior. Case has been discussed with Dr. Banks. Further recommendations regarding plan of care as per his assessment. I spent a total of 30 minutes on the date of service in preparation, delivery, documentation of the care provided to the patient excluding any time spent in the performance of separately billed services. ITZ [facility] Admission and Anticipated Discharge Date Admission Date: October 18, 2024 Supervising Physician Co-Signing Physician Notes Patient was seen and personally examined. Full assessment and plan as outlined by advanced provider as above. Care and management discussed and personally endorsed 74-year-old male with ongoing issues as outlined but include longstanding hypertension chronic ventricular ectopy underlying conduction system disease with bifascicular heart block and mild aortic stenosis. He uses CPAP for obstructive sleep apnea Presented with new onset atrial fibrillation with elevated ventricular response rate. Possibly precipitated by immunoglobin infusion. Spontaneous conversion to sinus rhythm in hospital with diltiazem Recommendations: Continue beta-rip with metoprolol succinate 25 mg daily Anticoagulation with Eliquis as planned Discontinue hydrochlorothiazide Begin furosemide 20 mg 5 days/week Outpatient event Zio monitor given conduction system disease Subjective 10/19/2024: Patient seen and examined in follow up today. Feeling well from a cardiac perspective. Offers no acute cardiac concerns. Labs, vitals, diagnostics, telemetry and documentation reviewed. Telemetry reviewed showing SR rates 60-70's. Patient had converted to SR at 2100 last evening. Review of Systems Review of Systems: All systems reviewed & are unremarkable except as noted in HPI & below Physical Exam Constitutional: well developed and well nourished Neck: normal visual inspection and trachea midline Respiratory: normal respiratory effort; no respiratory distress Auscultation: lungs clear to auscultation bilaterally; no crackles, no rales, no rhonchi and no wheezes Cardiovascular: RRR, no murmur, no edema Heart Sounds: normal S1 and normal S2 Vessels: dorsalis pedis pulses present; no JVD Extremities: no edema Skin: no rashes, warm and dry Psychiatric: A+Ox3, euthymic affect Results & Data Vital Signs (Past 12 Hours) Vital Signs Temp Pulse Pulse Resp BP Pulse Ox O2 Del Method 10/19/24 11:00 36.5 C 68 18 125/69 97 Room Air 10/19/24 08:00 36.6 C 70 20 118/74 96 Room Air 10/19/24 07:43 70 10/19/24 03:28 36.6 C 66 18 121/71 94 Room Air Laboratory Results Cardiac Enzymes 10/18/24 Range/Units 13:08 Troponin I High Sens 305.0 H* D (0-20) pg/ml Lipids 10/19/24 Range/Units 05:39 Triglycerides 92 (0-150) mg/dl Cholesterol 148 (0-200) mg/dl HDL Cholesterol 30 mg/dl Cholesterol/HDL Ratio 4.9 (0-5) CBC 10/19/24 Range/Units 05:39 WBC 6.42 (4.8-10.8) K/ul RBC 4.63 L (4.70-6.10) M/uL Hgb 14.8 (14.0-18.0) g/dl Hct 42.4 (42.0-52.0) % Plt Count 141 (130-400) K/uL Comprehensive Metabolic Panel 10/19/24 Range/Units 05:39 Sodium 136 (136-145) mmol/L Potassium 3.8 (3.5-5.1) mmol/L Chloride 101 (98-107) mmol/L Carbon Dioxide 28 (21-32) mmol/L BUN 19 (6-23) mg/dl Creatinine 0.89 (0.6-1.4) mg/dl Glucose 89 (70-99(Fasting)) mg/dl Calcium 8.1 L (8.6-10.3) mg/dl Intake and Output 10/18/24 10/19/24 10/19/24 22:59 06:59 14:59 Intake Total 668.917 / 2180.750 511.833 / 2180.750 500.000 / 500.000 Output Total 700 / 900 200 / 900 Balance -31.083 / 1280.750 311.833 / 1280.750 500.000 / 500.000 Intake: IV 328.917 / 1540.750 211.833 / 1540.750 500.000 / 500.000 Heparin 24771 Unit/500 ml D5w 288.167 / 500.000 211.833 / 500.000 500.000 / 500.000 25,000 units In 500 ml @ 1,750 UNITS/HR 35 mls/hr IV .[id number] [facility] Rx#:[id number] dilTIAZem HCL 125 mg In 40.75 / 40.75 Dextrose 5% 100 ml @ 5 MG/HR 5 mls/hr IV .Q24H [facility] Rx#: [id number] Oral 340 / 640 300 / 640 Output: Urine 700 / 900 200 / 900 Other: Weight 133.4 kg 133.5 kg Weight Measurement Method Built in [facility] Built in [facility] PG Care Time/CCT Total # of Minutes Spent Total Time Spent with Patient: Total time spent is greater than 50% in coordination of care (as documented) at patient's floor/unit and/or counseling patient: Coding Level of Care Code 09006 SUB INP/OBS CARE 3/50MIN Diagnoses New onset atrial fibrillation I48.91 Bifascicular bundle branch block I45.2 Aortic stenosis I35.0 Time Spent (min) 35
--- NOTE | 2024-10-19 13:20 | Discharge Summary ---
Discharge Summary Date of Service October 19, 2024 Principal Dx & Hospital Course #1 = Principal Diagnosis (1) Paroxysmal atrial fibrillation: (2) Aortic stenosis: (3) Bifascicular bundle branch block: (4) HTN (hypertension): (5) Hypothyroidism associated with surgical procedure: Plan Patient is 74-year-old gentleman who presented to the emergency room with shortness of breath and tachycardia identified in an outpatient appointment with his PCP. In the emergency room was noted to be in atrial fibrillation with rapid ventricular response. The patient was admitted to the hospital. Started on IV Cardizem and oral metoprolol. He was also started on IV heparin for anticoagulation secondary stroke prevention. Patient has demyelinating polyneuropathy and had just received cycle of IVIG. Question whether they may have triggered the atrial fibrillation. He has not had any issues in the past. Patient's echocardiogram was updated. Does have some aortic stenosis but ejection fraction within normal range. On the night prior to discharge patient converted to sinus rhythm. Cardizem drip was discontinued. He was transition from metoprolol to tartrate to metoprolol succinate. His heparin was converted to Eliquis. He was up and ambulatory and remained in sinus rhythm. Cardiology was involved in his care and was agreeable with these medication changes. Patient also was converted to Lasix for his diuretic and his hydrochlorothiazide was discontinued during this hospitalization. With recommend following of electrolytes and renal function as outpatient. He will be discharged home to follow-up with his PCP and cardiology. Notes For Next Care Provider BMP 7 to 14 days Medication Changes From Visit Metoprolol succinate added for rate control Hydrochlorothiazide discontinued Eliquis for secondary stroke prevention in the setting of paroxysmal atrial fibrillation Lasix for ongoing diuresis Admission HPI Per Admitting Provider Mr. Fu is a 74-year-old male that presented to the ED as recommended by his PCP for shortness of breath and tachycardia that was identified in an outpatient appointment. His heart rate was in the 150s in the office and he was instructed to proceed to the ED. He reportedly has been fe eling weak over the last few weeks. He has been doing more house chores like laundry (going up and down steps with a laundry basket, vaccuming, etc). He denies anything else unusual recently including upper respiratory illness or recent travel. He did have a mechanical fall 6 weeks ago and reports that he is seeing physical therapy for BPPV. Additional PMH includes: Ulcerative Colitis, HTN, LBBB, demeylenating polyneuropathy, and BPH. In the ED he was found to be in A-fib which was a new onset for him. He follows with Dr. Stone with Neurology For demyelinating polyneuropathy which was diagnosed at the beginning of the year. He has been receiving IVIG for treatment for this after pathology indicated in his left foot at the myelin sheath with demyelinating. He has received 4 weekly cycles of monthly IVIG injections that take place daily over 1 week time. Most recently his last injection was on Friday. He has not had any issues with his injections this far. He received metoprolol 5 mg IV x 2, Start aspirin, and was started on IV fluids x 1 L. No leukocytosis, troponin level 246.6 likely secondary to ischemic demand due to new onset A-fib. otherwise his electrolytes are unremarkable. [id number] score 2. in the ED he received metoprolol 5 mg IV x 2 and was loaded with baby aspirin 324 mg. Patient will be admitted for further evaluation and management of his new onset A-fib. Echocardiogram ordered, repeat Troponin, will start IV Heparin infusion without bolus given UC history, and start Metoprolol 12.5 mg po TID. Will keep NPO until Cards eval and admit to PCU.D-Dimer elevated at 4200; will add on chest CTA and Venous Doppler LE. Please see H&P for further details. Admission Exam Per Admitting Provider See H&P Discharge Exam Constitutional: Alert, nontoxic, no acute distress HEENT: Mucous membranes moist. Lungs: Clear to auscultation, decreased, no wheezes rales or rhonchi CV: S1-S2, regular Abdomen: Soft, nontender, nondistended Extremities: No significant edema Neuro: No focal deficits Psych: Cooperative, normal mood Updated Medication List Medication Instructions Recorded Confirmed Type allopurinol 300 mg tablet 300 mg PO QAM 03/02/19 10/18/24 History ergocalciferol (vitamin D2) 1,250 50,000 units PO DIRECTED 03/02/19 10/18/24 History mcg (50,000 unit) capsule hydrochlorothiazide 25 mg tablet 25 mg PO QAM 03/02/19 10/18/24 History losartan 50 mg tablet 50 mg PO QPM 03/02/19 10/18/24 History mesalamine 1.2 gram tablet,delayed 2.4 gm PO QAM 03/02/19 10/18/24 History release multivitamin 1 tab PO QAM 03/02/19 10/18/24 History tamsulosin 0.4 mg capsule 0.8 mg PO QAM 03/02/19 10/18/24 History tramadol 50 mg tablet 50 - 100 mg PO BID PRN Pain 03/02/19 10/18/24 History clonazepam 2 mg tablet 2 mg PO HS 04/13/19 10/18/24 History levothyroxine 137 mcg capsule 274 mcg PO QAM 04/13/19 10/18/24 History Lactobacillus acidophilus 250 20,000 mmu cells PO QAM 10/18/24 10/18/24 History million cell capsule (Probiotic Acidophilus) acetaminophen 500 mg tablet 500 mg PO Q6H PRN Pain 10/18/24 10/18/24 History cyclosporine 0.05 % eye drops in a 1 drp ophthalmic (eye) DAILY 10/18/24 10/18/24 History dropperette dutasteride 0.5 mg capsule 0.5 mg PO QAM 10/18/24 10/18/24 History krill oil 500 mg capsule 500 mg PO DAILY 10/18/24 10/18/24 History magnesium oxide 400 mg PO DAILY 10/18/24 10/18/24 History pregabalin 100 mg capsule 100 mg PO TID 10/18/24 10/18/24 History testosterone 3 pump topical QAM 10/18/24 10/18/24 History triamcinolone acetonide 0.1 % 1 applic topical QAM 10/18/24 10/18/24 History lotion turmeric 400 mg capsule 400 mg PO DAILY 10/18/24 10/18/24 History vitamin K2 40 mcg tablet 40 mcg PO DAILY 10/18/24 10/18/24 History apixaban 5 mg tablet (Eliquis) 5 mg PO BID #60 tabs 10/19/24 Rx furosemide 20 mg tablet 20 mg PO QAM #30 tabs 10/19/24 Rx metoprolol succinate 25 mg 25 mg PO QAM #30 tabs 10/19/24 Rx tablet,extended release 24 hr Hospital Stay Data Consultations 10/18/24 12:00 ED Decision to Admit Stat 10/18/24 13:00 Consult Cardiology Routine Diagnostic Imagining Performed 10/18/24 14:34 CT angio chest PE protocol Urgent US venous doppler LE Urgent Reviewed imaging, laboratory and diagnostic studies. Pertinent findings as below. CBC stable Electrolytes within normal range Creatinine 0.89 Hemoglobin A1c 5.7% Triglycerides 92 Cholesterol 148 LDL 100 HDL 30 Hepatitis C screen negative Ultrasound lower extremity negative for DVT CTA of the chest negative for PE, no effusions, edema or infiltrate. Echocardiogram was performed while he was in atrial fibrillation. Ejection fraction 55 to 60%, normal wall motion abnormality. at least mild aortic stenosis Personally reviewed EKG status post spontaneous conversion, sinus rhythm with right bundle branch block as well as a left anterior fascicular block, no acute ST-T wave changes. Sinus rhythm replacing atrial fibrillation. Pending Results Patient Have Any Pending Studies at Discharge: No Discharge Instructions Given to Patient (Per Discharging Provider) Follow-up with cardiology as coordinated Discuss with your PCP checking laboratory studies in approximately 10 to 14 days Total Time Total Time Spent Total Time Spent (In Minutes): 40
--- NOTE | 2024-10-19 13:22 | Electrocardiogram Report ---
Test Reason : Blood Pressure : */* mmHG Vent. Rate : 63 BPM Atrial Rate : 63 BPM P-R Int : 192 ms QRS Dur : 158 ms QT Int : 472 ms P-R-T Axes : 32 -76 11 degrees QTcB Int : 483 ms Normal sinus rhythm Right bundle branch block Left anterior fascicular block Bifascicular block Minimal voltage criteria for LVH, may be normal variant ( R in aVL ) Abnormal ECG When compared with ECG of 18-Oct-2024 11:49, Premature atrial complexes are no longer Present Vent. rate has decreased by 43 bpm Confirmed by Toney Ayers ([id number]) on 10/19/2024 1:22:24 PM Referred By: Xiang Kennedy Confirmed By: Toney Ayers
[2024-10-19] MEDS: FUROSEMIDE 20 MG TAB PO SCH (13:39)
[2024-10-20] MEDS ORDERED: METOPROLOL SUCC 25MG EXT REL TAB PO SCH (09:00)
== END 2024-10-19 13:48 | disposition home or self-care (01) | DRG 309 ==
LOC: ED 10:52 → INTOOBSV 12:15 → EDINP 12:15 → SUATTDRO 12:15 → 2S 14:25